=== PATIENT | female | born 1980 | race African-American/Black ===

== ENCOUNTER 2019-02-03 12:13 | Emergency (ER) | payer BC ==
[~2019-02-03] VITALS: Ht 180.3 cm; Wt 65.0 kg
[2019-02-03 12:17] VITALS: BP 135/92; PULSE 86; RESP 18; Ht 180.3 cm; Wt 65.0 kg
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
== END 2019-02-03 12:22 | disposition home or self-care (01) ==
LOC: E/R 12:13
DX: O26.893 Other specified pregnancy related conditions, third trimester (principal); R10.9 Unspecified abdominal pain; Z3A.31 31 weeks gestation of pregnancy
CPT/HCPCS: 99283

== ENCOUNTER 2019-02-03 12:37 | Outpatient (CLI) | payer BC ==
[~2019-02-03] VITALS: Ht 162.6 cm; Wt 83.8 kg
[2019-02-03 12:45] VITALS: Ht 162.6 cm; Wt 83.8 kg
[2019-02-03] MEDS ORDERED: TERBUTALINE 1 MG/ML INJ SC ONE (14:30)
[2019-02-03] MEDS ORDERED: LACTATED RINGER'S 1,000 ML IV SCH (14:30)
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
== END 2019-02-03 16:40 | disposition home or self-care (01) ==
LOC: L-D 12:37 → OBT 12:37
PROVIDERS: ATTEND Obstetrics & Gynecology
DX: O62.9 Abnormality of forces of labor, unspecified (principal); O09.513 Supervision of elderly primigravida, third trimester; Z3A.30 30 weeks gestation of pregnancy
CPT/HCPCS: 76817; 76818; 85460; 86900; 86901; 96360; 96361; 96372; G0463; J3105; J7120